=== PATIENT | male | born 1945 | race Caucasian/White ===

== ENCOUNTER → 2023-01-10 12:09 | Outpatient (BNVA) | payer MEDICARE, MEDICAID, SELFPAY | PROVIDERS: PCP Family Medicine; Referring Provider Family Medicine; Visit Provider Nurse Practitioner Gerontology ==

== ENCOUNTER 2023-01-10 14:42 | Outpatient (CLI) | payer MEDICARE, SELFPAY ==
--- OUTSIDE RECORDS SUMMARY | 2023-01-10 14:47 | XMS_ITS | Continuity of Care Document ---
Author Name Unknown Organization [facility] Ambulatory Clinics Address [address] [place] [address] Care Team Providers Care Pharmacy Informaticist Name Role Phone Fercho Cooney MD, Zoraida Primary Care Physician Encounter [facility] NBR [id number] Date(s): 02/03/22 - 02/03/22 [facility] Ambulatory Clinics [address] [place] [place] [address] Encounter Diagnosis Neurogenic bladder(Discharge Diagnosis) - 02/03/22 Prostatitis(Discharge Diagnosis) - 02/03/22 Orchitis(Discharge Diagnosis) - 02/03/22 Discharge Disposition: Home or Self Care Attending Physician: Lashay Amaya APRN Allergies, Adverse Reactions, Alerts Substance Reaction Severity Status enalapril Unknown Active fluconazole Mild Active aspirin Mild Active cholestyramine Mild Active folic acid Mild Active morphine Mild Active Coumadin Mild Active Metoprolol Tartrate Mild Active Lopid Unknown Active Flomax Mild Active Zetia Unknown Active statins 1 Severe Active OxyCODONE Hydrochloride Mild Acti ve GuaiFENesin ER Mild Active 1Other than crestor Assessment and Plan Future Appointments Functional Status 02/03/22 Living Environment Home Environment No qualifying data available Other exposure to Infectious Disease Non e Medications acetaminophen 500 mg oral tablet 1,000 mg = 2 tab, Oral, every 6 hr, PRN as needed for pain, 0 Refill(s) Start Date: 12/09/21 Status: Ordered albuterol 2.5 mg/3 mL (0.083%) inhalation solution 2.5 mg = 3 mL, NEB, every 6 hr, PRN as needed for wheezing, # 90 mL, 0 Refill(s) Start Date: 12/09/21 Status: Ordered amoxicillin 250 mg oral capsule 0 Refill(s) Start Date: 01/11/22 Status: Ordered Banophen 25 mg oral tablet 25 mg = 1 tab, Oral, every 6 hr, PRN as needed for allergy symptoms, # 24 tab, 0 Refill(s) Start Date: 12/09/21 Status: Ordered betamethasone dipropionate 0.05% topical cream 1 apolonia, Topical, BID, # 15 g, 0 Refill(s) Start Date: 12/09/21 Status: Ordered Cartia XT 120 mg/24 hours oral capsule, extended release 120 mg = 1 cap, Oral, Daily, # 90 cap, 0 Refill(s) Start Date: 12/09/21 Status: Ordered cephalexin 500 mg oral capsule 0 Refill(s) Start Date: 12/09/21 Status: Ordered clotrimazole 10 mg oral lozenge 0 Refill(s) Start Date: 12/09/21 Status: Ordered Crestor 40 mg oral tablet 40 mg = 1 tab, Oral, Daily, # 30 tab, 0 Refill(s) Start Date: 12/09/21 Status: Ordered doxycycline hyclate 100 mg oral capsule 0 Refill(s) Start Date: 01/11/22 Status: Ordered Fish Oil 1200 mg oral capsule 0 Refill(s) Start Date: 12/09/21 Status: Ordered Flomax 0.4 mg oral capsule 0.4 mg = 1 cap, Oral, Daily, # 90 cap, 0 Refill(s) Start Date: 12/09/21 Status: Ordered fluconazole 150 mg oral tablet 150 mg = 1 tab, Oral, Once, # 1 tab, 0 Refill(s) Start Date: 12/09/21 Status: Ordered ipratropium 42 mcg/inh (0.06%) nasal spray 0 Refill(s) Start Date: 12/09/21 Status: Ordered magnesium oxide 400 mg (241.3 mg elemental magnesium) oral tablet 0 Refill(s) Start Date: 12/09/21 Status: Ordered NeilMed Sinus Rinse Kit 0 Refill(s) Start Date: 12/09/21 Status: Ordered Nitro-Dur 0.1 mg/hr transdermal film, extended release 1 patches, Topical, Daily, # 90 patches, 0 Refill(s) Start Date: 12/09/21 Status: Ordered nitroglycerin 0.4 mg sublingual tablet 0.4 mg = 1 tab, SL, every 5 min, PRN as needed for chest pain, # 100 tab, 0 Refill(s) Start Date: 12/09/21 Status: Ordered NovoLIN N 100 units/mL subcutaneous suspension 10 units =, Subcutaneous, BID, # 10 mL, 0 Refill(s) Start Date: 12/09/21 Status: Ordered nystatin 100,000 units/mL oral suspension 0 Refill(s) Start Date: 12/09/21 Status: Ordered pantoprazole 40 mg oral delayed release tablet 40 mg = 1 tab, Oral, BID, # 60 tab, 0 Refill(s) Start Date: 12/09/21 Status: Ordered Plavix 75 mg oral tablet 75 mg = 1 tab, Oral, Daily, # 90 tab, 0 Refill(s) Start Date: 12/09/21 Status: Ordered Potassium Chloride (Qjt-Wzoe-Qkg M20) 20 mEq oral tablet, extended release 0 Refill(s) Start Date: 12/09/21 Status: Ordered predniSONE 1 mg oral tablet 3 mg = 3 tab, Oral, Daily, with food or milk, # 90 tab, 0 Refill(s) Start Date: 12/09/21 Status: Ordered Simply Saline 0.9% nasal spray 1 sprays, Nasal, every 30 min, PRN as needed for dry nasal passages, # 45 mL, 0 Refill(s) Start Date: 12/09/21 Status: Ordered Ventolin HFA 90 mcg/inh inhalation aerosol 2 puffs, Inhale, every 4 hr, PRN as needed for wheezing, # 8 g, 0 Refill(s) Start Date: 12/09/21 Status: Ordered Vitamin B12 1,000 mcg =, Oral, Daily, 0 Refill(s) Start Date: 12/09/21 Status: Ordered Xarelto 20 mg oral tablet 20 mg = 1 tab, Oral, every evening, # 30 tab, 0 Refill(s) Start Date: 12/09/21 Status: Ordered Vital Signs Most recent to oldest [Reference Range]: 1 Temperature Temporal Artery [36-38 Deg C ] 36.2 Deg C (02/03/22 11:20 AM) Apical Heart Rate [60-100 bpm] 62 bpm (02/03/22 11:20 AM) Respiratory Rate [12-24 br/min] 12 br/mi n (02/03/22 11:20 AM) Weight 74 kg (02/03/22 11:20 AM) Weight Measured (lbs) 163.142 lb (02/03/22 11:20 AM) [place] Body Weight Calculated 59.598 kg (02/03/22 11:20 AM) Height 163 cm (02/03/22 11:20 AM) Height/Length Measured (inches) 64.17 in (02/03/22 11:20 AM) BSA Measured 1.83 m2 (02/03/22 11:20 AM) Body Mass Index 27.85 kg/m2 (02/03/22 11:20 AM) Social History Social History Type Response Tobacco Former tobacco user Tobacco Use:. Sex Physician Outpatient Note * Lashay Amaya, GLASS INSPECTOR: PERFORM Event Display: Office Clinic Note Physician Authored Date: [id number] DUC BROWN, SEN Dillon :1945 Age:77 years Sex:Male Visit Date:02/03/2022 Primary Care Physician: Zoraida COONEY MD Chief Complaint Follow up for right epididymo-orchitis History of Present Illness Mr. Arita is a pleasant 77 year-old man who presents to the clinic today for??follow-up of right epididymo-orchitis.? He is currently undergoing daily IV infusions of Ceftriaxone antibiotic therapy. He tells me today that his pain is improving. He is having these infusions done daily at [facility]. It was difficult to get this set up for him due to healthcare staffing issues and I was initially told they could not accommodate him. Dr. Etienne pushed back and I am thankful to her for being able to get this therapy in place for him. He lives two miles from [facility]. I could not justify a 77 y.o. man driving to [facility] daily to receive the same therapy. ?? Initially, he was treated with oral antibiotic therapy that consisted of levofloxacin and doxycycline with minimal to??no appreciable improvement of symptoms.?? He denies dysuria.? His urine is not currently cloudy.? He denies perineal pain.? He has a neurogenic bladder, and manages it with [facility] about every 2-3h.? He has a history of bladder calculi. He has a history of ureteral calculi that required ureteroscopy with laser lithotripsy on two occasions. Review of Systems Constitutional:?No??fevers,?No??chills,?No??sweats Eye:?No??recent visual problems ENT:?No??ear pain,?No??nasal congestion,?No??sore throat Respiratory:?No??shortness of breath,?No??cough Cardiovascular:?No??Chest pain,?No??palpitations,?No??syncope Gastrointestinal:?Nonausea,?No??vomiting,?No??diarrhea Genitourinary:?No??hematuria, yes to neurogenic bladder manages with [facility] Ok/Lymph:?No??bruising tendency,?No??swollen lymph glands Endocrine:?No??excessive thirst,??No??excessive hunger Musculoskeletal:??No??back pain,??No??neck pain,??No??joint pain,??No??muscle pain,??No??decreased range of motion Integumentary:?No??rash,?No??pruritus,?No??abrasions Neurologic: Alert & oriented X 4 Psychiatric:?No??anxiety,?No??depression Physical Exam Vitals & Measurements T:??36.2?C ??(Temporal Artery)?? HR:??62??(Apical)?? RR:??12?? SpO2:??95%?? HT:??163??cm?? WT:??74??kg?? BMI:??27.85?? BSA:??1.83?? GENERAL APPEARANCE:??alert and oriented in NAD; appropriate with good affect.??.?? NEURO:??grossly intact.?? HEENT:??NCAT; EOMI.?? NECK:??supple.?? CHEST:??symmetric excursions.?? ABDOMEN:??deferred. MUSCULOSKELETAL:??antalgic gait. EXTREMITIES:??no c/c/e??.?? BACK/SPINE:??deferred. :??deferred. Assessment/Plan 1.??Neurogenic bladder??N31.9 Currently manages with [facility] and low dose tamsulosin. 2.??Prostatitis??N41.9 1. Continue Ceftriaxone 1 gm IV qd per Dr. Etienne orders. 3.??Orchitis??N45.2 see above Mr. Arita is a pleasant 77 y.o. man with prostatitis, orchitis undergoing daily ceftriaxone IV therapy. He is beginning to experience less discomfort and is happy to continue the current plan of care. He will follow up with Dr. Magali Cooney after the antibiotic course is completed and with us in six months. He also has a neurogenic bladder that he manages with [facility] and tamsulosin. Problem List/Past Medical History Ongoing No qualifying data Historical No qualifying data Medications acetaminophen 500 mg oral tablet, 1000 mg= 2 tab, Oral, every 6 hr, PRN albuterol 2.5 mg/3 mL (0.083%) inhalation solution, 2.5 mg= 3 mL, NEB, every 6 hr, PRN amoxicillin 250 mg oral capsule Banophen 25 mg oral tablet, 25 mg= 1 tab, Oral, every 6 hr, PRN betamethasone dipropionate 0.05% topical cream, 1 apolonia, Topical, BID Cartia XT 120 mg/24 hours oral capsule, extended release, 120 mg= 1 cap, Oral, Daily cephalexin 500 mg oral capsule clotrimazole 10 mg oral lozenge Crestor 40 mg oral tablet, 40 mg= 1 tab, Oral, Daily doxycycline hyclate 100 mg oral capsule Fish Oil 1200 mg oral capsule Flomax 0.4 mg oral capsule, 0.4 mg= 1 cap, Oral, Daily fluconazole 150 mg oral tablet, 150 mg= 1 tab, Oral, Once ipratropium 42 mcg/inh (0.06%) nasal spray magnesium oxide 400 mg (241.3 mg elemental magnesium) oral tablet NeilMed Sinus Rinse Kit Nitro-Dur 0.1 mg/hr transdermal film, extended release, 1 patches, Topical, Daily nitroglycerin 0.4 mg sublingual tablet, 0.4 mg= 1 tab, SL, every 5 min, PRN NovoLIN N 100 units/mL subcutaneous suspension, 10 units, Subcutaneous, BID nystatin 100,000 units/mL oral suspension pantoprazole 40 mg oral delayed release tablet, 40 mg= 1 tab, Oral, BID Plavix 75 mg oral tablet, 75 mg= 1 tab, Oral, Daily Potassium Chloride (Qin-Jhsi-Php M20) 20 mEq oral tablet, extended release predniSONE 1 mg oral tablet, 3 mg= 3 tab, Oral, Daily Simply Saline 0.9% nasal spray, 1 sprays, Nasal, every 30 min, PRN Ventolin HFA 90 mcg/inh inhalation aerosol, 2 puffs, Inhale, every 4 hr, PRN Vitamin B12, 1000 mcg, Oral, Daily Xarelto 20 mg oral tablet, 20 mg= 1 tab, Oral, every evening Allergies statins Coumadin Flomax GuaiFENesin ER Metoprolol Tartrate OxyCODONE Hydrochloride aspirin cholestyramine fluconazole folic acid morphine Lopid Zetia enalapril Social History Electronic Cigarette/Vaping Electronic Cigarette Use: Never. Tobacco Former tobacco user Tobacco Use:. Electronically Signed on 02/03/22 01:02 PM Lashay Amaya APRN Patient Care team information Personnel Name: Zoraida COONEY MD Address: Address: [address]
--- OUTSIDE RECORDS SUMMARY | 2023-01-10 14:47 | XMS_ITS | Continuity of Care Document ---
Author Name Unknown Organization [facility] Address [address] [place] [address] Care Team Providers Care Addiction Medicine Physician Name Role Phone Fercho Barajas MD, Zoraida Primary Care Physician Encounter [facility] NBR [id number] Date(s): 03/11/22 - 03/11/[address] [address] [place] Encounter Diagnosis Prostatitis(Discharge Diagnosis) - 03/11/22 Discharge Disposition: Home or Self Care Attending Physician: Lashay Amaya APRN Admitting Physician: Lashay Amaya APRN Allergies, Adverse Reactions, [...] than crestor Assessment and Plan Future Appointments Medications acetaminophen 500 mg oral tablet 1,000 [...] Start Date: 12/09/21 Status: Ordered Potassium Chloride (Jwe-Xoco-Qul M20) 20 mEq oral tablet, extended release [...] 0 Refill(s) Start Date: 12/09/21 Status: Ordered Results Laboratory List Name Date Urinalysis Microscopic 03/11/22 Urinalysis with Micro if Indicated and C ulture if Indicated 03/11/22 Most recent to oldest [Reference Range]: 1 UA Color [Yellow] Yellow (03/11/22 4:10 PM) UA WBC [0-3] 0-3 (03/11/22 4:10 PM) UA Urobilinogen [0.2] 0.2 (03/11/22 4:10 PM) UA Bili [Negative] Negative (03/11/22 4:10 PM) UA Ketones [Negative] Negative (03/11/22 4:10 PM) UA RBC [0-3] 6-10 *ABN* (03/11/22 4:10 PM) UA Leuk Est [Negative] Negative (03/11/22 4:10 PM) UA Nitrite [Negative] Negative (03/11/22 4:10 PM) UA Glucose [Negative] Negative (03/11/22 4:10 PM) UA Bacteria [None Seen] 1+ *ABN* (03/11/22 4:10 PM) UA Protein [Negative] Negative (03/11/22 4:10 PM) UA Blood [Negative] Moderate *ABN* (03/11/22 4:10 PM) UA Spec Grav 1.020 *NA* (03/11/22 4:10 PM) UA Squam Epithelial [0-3] 0-3 (03/11/22 4:10 PM) UA pH 8.00 *NA* (03/11/22 4:10 PM) UA Appear [Clear] Clear (03/11/22 4:10 PM) UA Culture Ind?. [No] Yes (03/11/22 4:10 PM) Urine Srce Clean Catch (03/11/22 4:10 PM) Orders for Microbiology Reports Name Date Urine Culture 03/11/22 Microbiology Reports TEST:Urine Culture STATUS:Order in Progress BODY SITE: SOURCE:Urine, Clean Catch COLLECTED DATE/TIME:03/11/22 4:10 PM PRELIMINARY REPORT No growth of uropathogens Social History Social History Type Response Tobacco Former tobacco user Tobacco Use:. Sex Patient Care team information Personnel Name: Zoraida BARAJAS MD Address: Address: [address]
--- OUTSIDE RECORDS SUMMARY | 2023-01-10 14:47 | XMS_ITS | Continuity of Care Document ---
Author Name Unknown Organization [facility] Ambulatory Clinics Address [address] [place] [address] Care Team Providers Care Bed Control Specialist Name Role Phone Fercho Barajas MD, Zoraida Primary Care Physician Encounter [facility] NBR [id number] Date(s): 03/11/22 - 03/11/22 [facility] Ambulatory Clinics [address] [place] [address] [place] Encounter Diagnosis Prostatitis(Discharge Diagnosis) - 03/11/22 [...] Assessment and Plan Future Appointments Functional Status 03/11/22 Living Environment Home Environment No qualifying data [...] Start Date: 12/09/21 Status: Ordered Potassium Chloride (Gvf-Oxtm-Afw M20) 20 mEq oral tablet, extended release [...] Status: Ordered Results Laboratory List Name Date .Urinalysis POCT 03/11/22 Most recent to oldest [Reference Range]: 1 Method of Collect POC Clean Catch *NA* (03/11/22 9:37 AM) Specific [place], Ur POC 1.020 *NA* (03/11/22 9:37 AM) Specimen Color POC [Yellow] Yellow (03/11/22 9:37 AM) Glucose, Urine POC Negative mg/dL *NA* (03/11/22 9:37 AM) Bilirubin, Urine POC [Negative] Negative (03/11/22 9:37 AM) Ketones, Urine POC [Negative mg/dL] Nega tive mg/dL (03/11/22 9:37 AM) Blood, Urine POC [Negative] Moderate *ABN* (03/11/22 9:37 AM) pH, Urine POC 8.5 *NA* (03/11/22 9:37 AM) Protein, Urine POC [Negative mg/dL] Nega tive mg/dL (03/11/22 9:37 AM) Urobilinogen, Urine POC [0.2] 0.2 (03/11/22 9:37 AM) Nitrite, Urine POC [Negative] Negative (03/11/22 9:37 AM) Leuk Esterase, Urine POC [Negative] Nega tive (03/11/22 9:37 AM) Clarity, Urine POC [Clear] Clear (03/11/22 9:37 AM) Vital Signs Most recent to oldest [Reference Range]: 1 Temperature Temporal Artery [36-38 Deg C ] 36.1 Deg C (03/11/22 9:26 AM) Apical Heart Rate [60-100 bpm] 81 bpm (03/11/22 9:26 AM) Respiratory Rate [12-24 br/min] 14 br/mi n (03/11/22 9:26 AM) Blood Pressure [90-140/60-90 mmHg] 140/7 2mmHg (03/11/22 9:26 AM) Weight 71.75 kg (03/11/22 9:26 AM) Weight Measured (lbs) 158.181 lb (03/11/22 9:26 AM) [place] Body Weight Calculated 60.504 kg (03/11/22 9:26 AM) Height 164 cm (03/11/22 9:26 AM) Height/Length Measured (inches) 64.57 in ch (03/11/22 9:26 AM) BSA Measured 1.81 m2 (03/11/22 9:26 AM) Body Mass Index 26.68 kg/m2 (03/11/22 9:26 AM) Social History Social History Type Response Tobacco Former tobacco user Tobacco Use:. Sex Patient Care team information Personnel Name: Zoraida BARAJAS MD Address: Address: [address]
--- OUTSIDE RECORDS SUMMARY | 2023-01-10 14:47 | XMS_ITS | Continuity of Care Document ---
Author Name Unknown Organization [facility] Ambulatory Clinics Address [address] [place] [address] Care Team Providers Care Front Desk Representative Name Role Phone Fercho Cooney MD, Zoraida Primary Care Physician Encounter [facility] NBR [id number] Date(s): 04/12/22 - 04/12/22 [facility] Ambulatory [facility]ics [address] [place] [address] [place] Encounter Diagnosis Benign localized prostatic hyperplasia with lower urinary tract symptoms (LUTS) (Discharge Diagnosis) - 04/12/22 Neurogenic bladder(Discharge Diagnosis) - 04/12/22 Discharge Disposition: Home or Self Care Attending Physician: Glenna Mendoza MD Allergies, Adverse Reactions, Alerts Substance Reaction Severity [...] Assessment and Plan Future Appointments Functional Status 04/12/22 Living Environment Home Environment No qualifying data [...] Start Date: 12/09/21 Status: Ordered Potassium Chloride (Osp-Pnmt-Xos M20) 20 mEq oral tablet, extended release [...] 0 Refill(s) Start Date: 12/09/21 Status: Ordered Problem List Condition Confirmation Course Effective Dates Status Health St atus Informant Benign localized prostatic hyperplasia with lower urinary tract symptoms (LUTS) Confirmed Active Neurogenic bladder Confirmed Active Results Laboratory List Name Date .Urinalysis POCT 04/12/22 Most recent to oldest [Reference Range]: 1 Method of Collect POC Clean Catch *NA* (04/12/22 9:51 AM) Specific [place], Ur POC 1.025 *NA* (04/12/22 9:51 AM) Specimen Color POC [Yellow] Yellow (2/20/23 9:51 AM) Glucose, Urine POC 100 mg/dL *NA* (04/12/22 9:51 AM) Bilirubin, Urine POC [Negative] Negative (04/12/22 9:51 AM) Ketones, Urine POC [Negative mg/dL] Nega tive mg/dL (04/12/22 9:51 AM) Blood, Urine POC [Negative] Small *ABN* (04/12/22 9:51 AM) pH, Urine POC 7.0 *NA* (04/12/22 9:51 AM) Protein, Urine POC [Negative mg/dL] Nega tive mg/dL (04/12/22 9:51 AM) Urobilinogen, Urine POC [0.2] 0.2 (04/12/22 9:51 AM) Nitrite, Urine POC [Negative] Negative (04/12/22 9:51 AM) Leuk Esterase, Urine POC [Negative] Trac e *ABN* (04/12/22 9:51 AM) Clarity, Urine POC [Clear] Clear (04/12/22 9:51 AM) Vital Signs Most recent to oldest [Reference Range]: 1 Temperature Temporal Artery [36-38 Deg C ] 36.2 Deg C (04/12/22 10:07 AM) Apical Heart Rate [60-100 bpm] 102 bpm *HI* (04/12/22 10:07 AM) Respiratory Rate [12-24 br/min] 12 br/mi n (04/12/22 10:07 AM) Blood Pressure [90-140/60-90 mmHg] 138/6 2mmHg (04/12/22 10:07 AM) Weight 71.75 kg (04/12/22 10:07 AM) Weight Measured (lbs) 158.181 lb (04/12/22 10:07 AM) [place] Body Weight Calculated 60.504 kg (04/12/22 10:07 AM) Height 164 cm (04/12/22 10:07 AM) Height/Length Measured (inches) 64.57 in (04/12/22 10:07 AM) BSA Measured 1.81 m2 (04/12/22 10:07 AM) Body Mass Index 26.68 kg/m2 (04/12/22 10:07 AM) Social History Social History Type Response Tobacco Former tobacco user Tobacco Use:. Sex Physician Outpatient Note * Glenna Mendoza MD: PERFORM Event Display: Office Clinic Note Physician Authored Date: [id number] SEN ARITA SR :1945 Age:77 years Sex:Male Visit Date:04/12/2022 Primary Care Physician: Zoraida COONEY MD Chief Complaint Recurrent UTI/prostatitis History of Present Illness Mr. Arita is a pleasant 77 year-old?? man with DMII and recent recurrent??prostatitis/UTI in the context??of a neurogenic bladder he manages with [facility]IC. He presents today for cystoscopy as part of his work-up.?? He notes that he has intermittent difficulty passing a catheter, and wonders if this is related to the prostate.?He has associated bilateral lower back pain, and some dysuria.? He has a history of UTI, and was recently treated at [facility] for UTI. He has DMII and an associated neurogenic bladder diagnosed in 2003 by a urodynamic study done at [facility]. He was instructed to manage his bladder with CIC at that time, which he did for several months.?? He later quit for several years before going backto it.? He has??recently had issues with recurrent??prostatitis/UTI, and discomfort with catheterization.?? He is adamant that he would like a TURP, which he feels would resolve the issue.?? I reminded him that the urodynamic study he had at [facility] back in 2003 showed a??neurogenic bladder,in which case a TURP would??very likely not improve his urination, and therefore would not??decrease his risk of UTI.? I also let him know that I was not at all certain that he would be a good??surgical candidate. ?? Physical Exam Vitals & Measurements T:??36.2?C ??(Temporal Artery)?? HR:??102??(Apical)?? RR:??12?? BP:??138/62?? SpO2:??95%?? HT:??164??cm?? WT:??71.75??kg?? BMI:??26.68?? BSA:??1.81?? Procedure CYSTOSCOPY: ? After the patient give his informed consent??to undergo cystoscopy, he was placed supine on the table.? The genitalia were prepped and draped in standard sterile fashion.? A time-out was completed.?? Lidocaine jelly was instilled per urethra as a local anesthetic. Flexible cystoscopy was performed with a 17 Fr flexible cystoscope.?? 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 The bladder demonstrated no masses, and no foreign bodies.?? Teie-gg-crhohldk ??trabeculations and several??cellules were noted. The ureteral orifices were orthotopic bilaterally, and clear efflux was noted bilaterally as well. The patient tolerated the procedure well and remained stable throughout. ?? Assessment/Plan 1.??Neurogenic bladder??N31.9 ?? Benign localized prostatic hyperplasia with lower urinary tract symptoms (LUTS)??N40.1 Ordered: levoFLOXacin, 500 mg, Oral, Tab, Once, Antibiotic Indication Prophylaxis- other, non-surgical, First Dose: 04/12/22 11:00:00 EST, Stop Date: 04/12/22 11:00:00 EST, Physician Stop, Routine Pyridium, 100 mg, Oral, Tab, Once, First Dose: 04/12/22 11:00:00 EST, Stop Date: 04/12/22 11:00:00 EST, Physician Stop, Routine Urine Dipstick Clinic POC (RE), 04/12/22 9:50:00 EST, Benign localized prostatic hyperplasia with lower urinary tract symptoms (LUTS), 04/12/22 9:50:00 EST ?? ASSESSMENT:?? Mr. Arita is a pleasant 77 year-old?? man with DMII and recent recurrent??prostatitis/UTI in the context??of a neurogenic bladder he manages with CIC.?? His cystoscopy today showed mild meatal stenosis and a faint narrowing of the urethra at the bulb.?? PLAN: 1. He will continue CIC for now. 2. Suppression antibiotics will be considered, since frequent UTI have recently been problematic for him. 3. I am very hesitant to consider him for TURP, since his prior urodynamic study from 2003 showed aneurogenic bladder. ?? Problem List/Past Medical History Ongoing Benign localized prostatic hyperplasia with lower urinary tract symptoms (LUTS) Neurogenic bladder Historical No qualifying data Medications acetaminophen 500 [...] Once ipratropium 42 mcg/inh (0.06%) nasal spray levoFLOXacin, 500 mg, Oral, Once magnesium oxide 400 mg (241.3 mg elemental [...] mg= 1 tab, Oral, Daily Potassium Chloride (Hfk-Vwmd-Snq M20) 20 mEq oral tablet, extended release predniSONE 1 mg oral tablet, 3 mg= 3 tab, Oral, Daily Pyridium, 100 mg, Oral, Once Simply Saline 0.9% nasal spray, 1 sprays, [...] Never. Tobacco Former tobacco user Tobacco Use:. Lab Results Test Name Test Result Date/Time Method of Collect POC Clean Catch 04/12/2022 09:51 EST Specimen Color POC Yellow 04/12/2022 09:51 EST Clarity, Urine POC Clear 04/12/2022 09:51 EST Glucose, Urine POC 100 04/12/2022 09:51 EST Bilirubin, Urine POC Negative 04/12/2022 09:51 EST Ketones, Urine POC Negative 04/12/2022 09:51 EST Specific [place], Ur POC 1.025 04/12/2022 09:51 EST pH, Urine POC 7.0 04/12/2022 09:51 EST Protein, Urine POC Negative 04/12/2022 09:51 EST Urobilinogen, Urine POC 0.2 04/12/2022 09:51 EST Nitrite, Urine POC Negative 04/12/2022 09:51 EST Blood, Urine POC Small 04/12/2022 09:51 EST Leuk Esterase, Urine POC Trace 04/12/2022 09:51 EST Electronically Signed on 04/12/22 04:53 PM Glenna Mendoza MD Patient Care team information Care Team Personnel Name: Zoraida COONEY MD Position: Physician Member Role: Primary Care Physician Address: Address: [address] [address] Name: Lashay Amaya APRN Position: Physician Member Role: Nurse Practitioner Address: Address: [address] [place] [id number] [place] Care Team Related Persons Name: JANA ARITA
--- OUTSIDE RECORDS SUMMARY | 2023-01-10 14:47 | XMS_ITS | Continuity of Care Document ---
Author Name Unknown Organization [facility] Ambulatory Clinics Address [address] [place] [address] Care Team Providers Care White Sourer Name Role Phone Fercho Barajas MD, Ozraida Primary Care Physician Encounter [facility] NBR [id number] Date(s): 01/11/22 - 01/11/22 [facility] Ambulatory Clinics [address] [place], [place] [address] Encounter Diagnosis BPH (benign prostatic hyperplasia)(Discharge Diagnosis) - 01/11/22 Discharge Disposition: Home or Self Care Attending [...] Assessment and Plan Future Appointments Functional Status 01/11/22 Living Environment Home Environment No qualifying data [...] Start Date: 12/09/21 Status: Ordered Potassium Chloride (Djd-Ooot-Qoa M20) 20 mEq oral tablet, extended release [...] Temperature Temporal Artery [36-38 Deg C ] 36.0 Deg C (01/11/22 3:02 PM) Apical Heart Rate [60-100 bpm] 113 bpm *HI* (01/11/22 3:02 PM) Respiratory Rate [12-24 br/min] 12 br/mi n (01/11/22 3:02 PM) Blood Pressure [90-140/60-90 mmHg] 136/7 2mmHg (01/11/22 3:02 PM) Weight 74 kg (01/11/22 3:02 PM) Weight Measured (lbs) 163.142 lb (01/11/22 3:02 PM) [place] Body Weight Calculated 59.598 kg (01/11/22 3:02 PM) Height 163 cm (01/11/22 3:02 PM) Height/Length Measured (inches) 64.17 in ch (01/11/22 3:02 PM) BSA Measured 1.83 m2 (01/11/22 3:02 PM) Body Mass Index 27.85 kg/m2 (01/11/22 3:02 PM) Social History Social History Type Response Tobacco Former tobacco user Tobacco Use:. Sex Patient Care team information Personnel Name: Zoraida BARAJAS MD Address: Address: [address] [address]
--- OUTSIDE RECORDS SUMMARY | 2023-01-10 14:47 | XMS_ITS | Continuity of Care Document ---
Author Name Unknown Organization [facility] Ambulatory Clinics Address [address] [place] [address] Care Team Providers Care Molecular Biologist Name Role Phone Fercho Cooney MD, Zoraida Primary Care Physician Encounter [facility] NBR [id number] Date(s): 06/09/22 - 06/09/22 [facility] Ambulatory Clinics [address] [place], [place] [address] Encounter Diagnosis Dysphagia(Discharge Diagnosis) - 06/08/22 Dysphonia(Discharge Diagnosis) - 06/08/22 Environmental allergies(Discharge Diagnosis) - 06/09/22 Xerostomia(Discharge Diagnosis) - 06/09/22 Nasal polyps(Discharge Diagnosis) - 06/09/22 Oral candidiasis(Discharge Diagnosis) - 06/09/22 Discharge Disposition: Home or Self Care Attending Physician: AMITA Wagner Allergies, Adverse Reactions, Alerts Substance Reaction Severity [...] crestor Assessment and Plan Future Appointments Medications !-Flonase 50 mcg/inh nasal spray 1 sprays, Nasal, BID, # 16 g, 2 Refill(s), Pharmacy: [facility] #[id number] Start Date: 06/09/22 Stop Date: 09/07/22 Status: Ordered acetaminophen 500 mg oral tablet 1,000 mg [...] Status: Ordered clotrimazole 10 mg oral lozenge 1 lozenges, Oral, TID, # 42 lozenges, 0 Refill(s), Pharmacy: [facility] #[id number] Start Date: 06/09/22 Stop Date: 06/23/22 Status: Ordered clotrimazole 10 mg oral lozenge [...] Start Date: 12/09/21 Status: Ordered Potassium Chloride (Uot-Ciud-Spu M20) 20 mEq oral tablet, extended release [...] 0 Refill(s) Start Date: 12/09/21 Status: Ordered ZyrTEC 10 mg oral tablet 10 mg = 1 tab, Oral, Daily, # 30 tab, 2 Refill(s), Pharmacy: [facility] #[id number] Start Date: 06/09/22 Stop Date: 09/07/22 Status: Ordered Problem List Condition Confirmation Course Effective Dates Status Health St at[facility] Informant Benign localized prostatic hyperplasia with lower urinary tract symptoms (LUTS) Confirmed Active Dysphagia Confirmed Active Dysphonia Confirmed Active Neurogenic bladder Confirmed Active Social History Social History Type Response Tobacco Former tobacco user Tobacco Use:. Sex Physician Outpatient Note * AMITA Wagner: PERFORM AMITA Wagner: PERFORM, MODIFY AMITA Wagner: MODIFY, MODIFY AMITA Wagner: MODIFY Event Display: Office Clinic Note Physician Authored Date: [id number] DUC SR SEN Dillon :1945 Age:77 years Sex:Male Visit Date:06/09/2022 Primary Care Physician: Zoraida Beck MD History of Present Illness Established patient in the office today for 6 month recheck of dysphagia. When patient was last in the office, patient was recommended to drink water when eating to help. He was scoped at last visit.??We did discuss option of??further evaluation with??GI medicine and consideration of endoscopy. ??Given??his current??history of possible unstable angina??stressed the importance of priority of making sure he is following up closely with primary care for this.?? Encouraged him to??drink fluids witheating and we discussed??techniques to??minimize??dysphagia. Patient notes that he has been spitting up some phlegm. He notes that that he has been drinking water with his meals and he has helped. Review of Systems Negative for: no new cardiac, respiratory, GI, , hematologic, neurologic, psychological, allergic, traumatic or endocrine problems except as listed above Physical Exam GENERAL APPEARANCE:??The patient is awake, alert, and oriented and in no acute distress, Appears nutritionally sound, Healthy in appearance, Voice is strong, with no stridor or stertor, Handling secretions without difficulty.?PSYCH:??affect normal, good eye contact, oriented to person, oriented to place, oriented to time.?NEURO:??CN's II-XII grossly intact, Gait is normal,?HEENT:??The patient is normocephalic with a normal facies with cranial nerves 2 through 12 bilaterally equal and intact. Pupils are equal and reactive to light with extraocular movements bilaterally equal and intact. There is no proptosis or enophthalmos,??EARS:, Ear exam reveals normal appearing pinna bilaterally. Mastoids are normal to palpation and nontender bilaterally. the ext ernal canal are patent, without otorrhea, with bilateral TM's mobile with no evidence of middle earfluid, middle ear masses, or retraction pockets.??NOSE:, The inferior turbinates are within normal limits, The middle meati are unremarkable with no polyps, masses or purulent discharge,??ORAL CAVITY:, no trismus, tongue and floor of mouth are normal to inspection and palpation. Mucosa is??dry withclear PND, mucosa is??currently has??oral candidiasis largely confined to lateral tongue bilaterally. the palate is intact and elevates symmetrically in midline,??OROPHARYNX:, Uvula midline, soft palate symmetric.?NECK:??There is no palpable lymphadenopathy.?HEART:??regular rate and rhythm.?LUNGS:??clear to auscultation bilaterally, no wheezes/rhonchi/rales.?SKIN:??normal across the head and neck.?MUSCULOSKELETAL:??normal gait and station.?? Assessment/Plan 1.??Dysphagia??R13.10 Dysphonia and dysphagia with??findings of nasal polyposis, postnasal drip, xerostomia??and history of environmental allergies. ??He is not having any significant??aspiration or penetration with barium swallow.?? He will benefit significantly from medication adjustment??from an allergy and nasal polyp standpoint. ??I do not see any evidence of sinus infection??with exam today.?? From a cardiac standpoint he is doing much better without??having symptomatic??angina and not requiring??nitroglycerinas he was/mentioned at last visit.?? We will continue with??swallowing??exercises, fluids and follow-up as needed. ??I do hope that??with medication changes below??he will have less dryness improvement in swallow as well. Ordered: clotrimazole 10 mg oral lozenge, 1 lozenges, Oral, TID, # 42 lozenges, 0 Refill(s), Pharmacy: [facility] #[id number] !-Flonase 50 mcg/inh nasal spray, 1 sprays, Nasal, BID, # 16 g, 2 Refill(s), Pharmacy: [facility] #[id number] ?? 2.??Dysphonia??R49.0 Ordered: clotrimazole 10 mg oral lozenge, 1 lozenges, Oral, TID, # 42 lozenges, 0 Refill(s), Pharmacy: [facility] #[id number] !-Flonase 50 mcg/inh nasal spray, 1 sprays, Nasal, BID, # 16 g, 2 Refill(s), Pharmacy: [facility] #[id number] ?? 3.??Environmental allergies??Z91.09 Recommend discontinuation of??ipratropium spray which is likely adding to his dryness??and mucus. ??Start Flonase. ??I will look into if the prednisone is being only used for nasal polyps??and consider other medications/things that would be more optimal for long-term treatment.?? I expect he is also on the prednisone for another reason.?? Recommend discontinuing Benadryl which she has been taking3 times daily and is??certainly not ideal.?? Start once daily cetirizine and if needed can move this to twice daily.?? He did have prior allergy testing which was positive from??trees, weeds, grasses, dust mites. ??He did??undergo allergy immunotherapy. ?? 4.??Xerostomia??K11.7 ?? 5.??Nasal polyps??J33.9 ?? 6.??Oral candidiasis??B37.0 Oral candidiasis??with history of candidiasis in the past.?? Denies any anaphylactic reactions to fluconazole??which is on his allergy list.?? I do think that??this will ideally be treated with??clotrimazole troches which I have prescribed.?? Recommend follow-up for recheck.?? Weeks and sooner as needed.?? We will also recheck medication changes as above at that time. ?? Orders: ZyrTEC 10 mg oral tablet, 10 mg = 1 tab, Oral, Daily, # 30 tab, 2 Refill(s), Pharmacy: [facility] #[id number] Follow Up Instructions 6 months, rescope Problem List/Past Medical History Ongoing Benign localized prostatic hyperplasia with lower urinary tract symptoms (LUTS) Dysphagia Dysphonia Neurogenic bladder Historical No qualifying data Medications [...] mg= 1 tab, Oral, Daily Potassium Chloride (Koc-Jjkv-Qie M20) 20 mEq oral tablet, extended release [...] tobacco user Tobacco Use:. Electronically Signed on 06/09/22 11:34 AM AMITA Wagner Patient Care team information Care Team Personnel Name: Lashay Amaya APRN Position: Physician Member Role: Nurse Practitioner Address: Address: [address] [place] [phone] Name: Zoraida Beck MD Position: Physician Member Role: Primary Care Physician Address: Address: [address] [address] Care Team Related Persons Name: JANA XAVIER
--- OUTSIDE RECORDS SUMMARY | 2023-01-10 14:47 | XMS_ITS | Continuity of Care Document ---
Author Name Unknown Organization [facility] Ambulatory Clinics Address [address] [place] [address] Care Team Providers Care Deputy Of Counter Intelligence Name Role Phone Fercho Cooney MD, Zoraida Primary Care Physician Encounter [facility] NBR [id number] Date(s): 07/07/22 - 07/07/22 [facility] [address] [place] [address] [place] Encounter Diagnosis Dysphagia(Discharge Diagnosis) - 07/06/22 Dysphonia(Discharge Diagnosis) - 07/06/22 Nasal polyps(Discharge Diagnosis) - 07/07/22 Discharge Disposition: Home or Self Care Attending [...] GuaiFENesin ER Mild Active 1Other than crestor Medications !-Flonase 50 mcg/inh nasal spray 1 sprays, Nasal, BID, # 16 g, 2 Refill(s), Pharmacy: [facility] #[id number] Start Date: 06/09/22 Stop Date: 09/07/22 Status: [...] 0 Refill(s) Start Date: 01/11/22 Status: Ordered atenolol 25 mg oral tablet 25 mg = 1 tab, Oral, Daily, # 30 tab, 0 Refill(s) Start Date: 07/07/22 Status: Ordered Banophen 25 mg oral tablet [...] TID, # 42 lozenges, 0 Refill(s), Pharmacy: [facility] #[id number] Start Date: 06/09/22 Stop Date: 06/23/22 Status: Ordered clotrimazole 10 mg oral lozenge 1 lozenges, Oral, TID, # 42 lozenges, 0 Refill(s), Pharmacy: [facility] #[id number] Start Date: 07/07/22 Stop Date: 07/21/22 Status: Ordered clotrimazole 10 mg oral lozenge [...] Start Date: 12/09/21 Status: Ordered Potassium Chloride (Zln-Nloe-Qem M20) 20 mEq oral tablet, extended release [...] Daily, # 30 tab, 2 Refill(s), Pharmacy: [facility] #[id number] Start Date: 06/09/22 Stop Date: 09/07/22 Status: Ordered Problem List Condition Confirmation Course Effective Dates Status H ealth Status Informant Benign localized prostatic hyperplasia with lower urinary tract symptoms (LUTS) Confirmed Active Oral candidiasis Confirmed Active Dysphagia Confirmed Active Dysphonia Confirmed Active History of environmental allergies Confirmed Active Neurogenic bladder Confirmed Active Xerostomia Confirmed Active Vital Signs Most recent to oldest [Reference Range]: 1 Blood Pressure [90-140/60-90 mmHg] 110/7 0mmHg (07/07/22 10:32 AM) Social History Social History Type Response Tobacco Former tobacco user Tobacco Use:. Sex Physician Outpatient Note * AMITA Wagner: PERFORM, MODIFY, MODIFY, MODIFY AMITA Wagner: MODIFY Rosa Isela Roth: MODIFY Event Display: Office Clinic Note Physician Authored Date: [id number] DUC SR SEN Dillon :1945 Age:77 years Sex:Male Visit Date:07/07/2022 Primary Care Physician: Zoraida Beck MD History of Present Illness Established patient in the office today for 4 week recheck oral candidiasis. Patient was prescribedat last office visit Clotrimazole troches for oral candidiasis, as well as Zyrtec and Flonase to help with improving dryness. Patient was to continue with swallowing exercises and fluids with meals to help with swallowing. It was recommended that he??discontinue??the??ipratropium spray which??was likely adding to his dryness??and mucus.?? Also recommended discontinuing Benadryl which??he had beentaking 3 times daily. He did have prior allergy testing which was positive from??trees, weeds, grasses, dust mites. ??He did??undergo allergy immunotherapy. He did undergo a barium swallow which did n ot show any significant aspiration or laryngeal penetration.?? He does have a history of??nasal polyposis.?? No evidence of acute sinusitis on exam or by history last visit.?? Recommended also starting Flonase. ??Patient states he has been feeling much better since his last visit, he stated he had stopped the medications he was suppose to and started the new recommended ones and has seen improvement. Patient states he is on an antibiotic due to s prostate infection. He notes??that with stopping the Benadryl and??ipratropium his symptoms??including problems swallowing and??throat irritation almost fully??resolved.?? This was also improved with??the clotrimazole drops.?? After stopping clotrimazole drops he did??have to restart??oral antibiotic doxycycline due to??prostate infection. ??With this he did feel that the??thrush was starting to return??and has somemild irritation now though significantly better than??last visit. Review of Systems Negative for: no new cardiac, respiratory, GI, , hematologic, neurologic, psychological, allergic, traumatic or endocrine problems except as listed above Physical Exam GENERAL APPEARANCE:??The patient is awake, alert, and oriented and in no acute distress, Appears nutritionally sound, Voice is strong, with no stridor or stertor, Handling secretions without difficulty.?PSYCH:??affect normal, good eye contact, oriented to person, oriented to place, oriented to time.?NEURO:??CN's II-XII grossly intact, Gait is normal, The patient has endpoint nystagmus only.?HEENT:??The patient is normocephalic with a normal facies [...] are normal to inspection and palpation. Mucosa is moist With very minimal candidiasis of the soft palate. the palate is intact and elevates symmetrically in midline,??OROPHARYNX:, Uvula midline, soft palate symmetric.?NECK:??There is no palpable lymphadenopathy.?SKIN:??normal across the head and neck.?MUSCULOSKELETAL:??normal gait and station.?? Assessment/Plan 1.??Dysphagia??R13.10 Multifocal dysphagia??likely largely secondary to candidiasis and xerostomia. ??Significant improvement??with discontinuing??ipratropium and Benadryl. ??He has some very minimal changes consistent with early thrush and recommend??treatment with another 7 days of clotrimazole.?? I did prescribe an additional week in case he notices is coming back??with further antibiotic use.?? At this time counseled him to return if symptoms??worsen or??he is having any??problems with??nasal polyps. ??Currentlythings are normal on??obstructive and no evidence of acute sinusitis??or chronic sinusitis. ??Recommend continued??daily use of Flonase. Ordered: clotrimazole 10 mg oral lozenge, 1 lozenges, Oral, TID, # 42 lozenges, 0 Refill(s), [id number] ?? 2.??Dysphonia??R49.0 Ordered: clotrimazole 10 mg oral lozenge, 1 lozenges, Oral, TID, # 42 lozenges, 0 Refill(s), Pharmacy: [facility] #[id number] ?? 3.??Nasal polyps??J33.9 Ordered: clotrimazole 10 mg oral lozenge, 1 lozenges, Oral, TID, # 42 lozenges, 0 Refill(s), Pharmacy: [facility] #[id number] ?? Problem List/Past Medical History Ongoing Benign localized prostatic hyperplasia with lower urinary tract symptoms (LUTS) Dysphagia Dysphonia History of environmental allergies Neurogenic bladder Oral candidiasis Xerostomia Historical No qualifying data Medications !-Flonase 50 mcg/inh nasal spray, 1 sprays, Nasal, BID, 2 refills acetaminophen 500 mg oral tablet, 1000 mg= [...] mg oral capsule clotrimazole 10 mg oral lozenge, 1 lozenges, Oral, TID clotrimazole 10 mg oral lozenge Crestor 40 [...] mg= 1 tab, Oral, Daily Potassium Chloride (Yix-Munj-Azc M20) 20 mEq oral tablet, extended release predniSONE 1 mg oral tablet, 3 mg= 3 tab, Oral, Daily Simply Saline 0.9% nasal spray, 1 sprays, Nasal, every 30 min, PRN Ventolin HFA 90 mcg/inh inhalation aerosol, 2 puffs, Inhale, every 4 hr, PRN Vitamin B12, 1000 mcg, Oral, Daily Xarelto 20 mg oral tablet, 20 mg= 1 tab, Oral, every evening ZyrTEC 10 mg oral tablet, 10 mg= 1 tab, Oral, Daily, 2 refills Allergies statins Coumadin Flomax GuaiFENesin ER Metoprolol Tartrate OxyCODONE Hydrochloride aspirin cholestyramine fluconazole folic acid morphine Lopid Zetia enalapril Social History Electronic Cigarette/Vaping Electronic Cigarette Use: Never. Tobacco Former tobacco user Tobacco Use:. Electronically Signed on 07/07/22 11:02 AM AMITA Wagner Patient Care team information Care Team Personnel Name: Lashay Amaya APRN Position: Physician Member Role: Nurse Practitioner Address: Address: [address] [place] [id number] Name: Zoraida Beck MD Position: Physician Member Role: Primary Care Physician Address: Address: [address] [address] Care Team Related Persons Name: JANA XAVIER
--- OUTSIDE RECORDS SUMMARY | 2023-01-10 14:47 | XMS_ITS | Continuity of Care Document ---
Author Name Unknown Organization [facility] Ambulatory Clinics Address [address] [place] [address] Care Team Providers Care Oil Distributor Tender Name Role Phone Zoraida Forrest MD Primary Care Physician Encounter [facility] NBR [id number] Date(s): 12/09/21 - 12/09/21 [facility] Ambulatory Clinics [address] [place] [address] [place] Encounter Diagnosis Dysphagia(Discharge Diagnosis) - 12/08/21 Dysphonia(Discharge Diagnosis) - 12/08/21 Nasal polyps(Discharge Diagnosis) - 12/08/21 Discharge Disposition: Home or Self Care Attending Physician: AMITA Wagner Referring Physician: Zoraida Forrest MD Allergies, Adverse Reactions, Alerts Substance Reaction [...] Assessment and Plan Future Appointments Functional Status 12/09/21 Other exposure to Infectious Disease Non e [...] 0 Refill(s) Start Date: 12/09/21 Status: Ordered Banophen 25 mg oral tablet [...] 0 Refill(s) Start Date: 12/09/21 Status: Ordered Fish Oil 1200 mg oral [...] Start Date: 12/09/21 Status: Ordered Potassium Chloride (Xpu-Mwex-Iuy M20) 20 mEq oral tablet, extended release [...] 0 Refill(s) Start Date: 12/09/21 Status: Ordered Social History Social History Type Response Tobacco Former tobacco user Tobacco Use:. Sex Patient Care team information Personnel Name: Zoraida Forrest MD Address: Address: [address]
[2023-01-11 18:34] LABS: PSA, Diagnostic 6.9 ng/mL (<=6.5)
== END 2023-01-10 14:43 | disposition home or self-care (01) ==
LOC: LBO 14:44
PROVIDERS: PCP Family Medicine; Visit Provider Nurse Practitioner Gerontology
DX: N42.81 Prostatodynia syndrome (principal); R33.9 Retention of urine, unspecified; Z80.42 Family history of malignant neoplasm of prostate
CPT/HCPCS: 36415; 81003; 99205; 84153

== ENCOUNTER → 2023-02-23 12:40 | Outpatient (BNVA) | payer MEDICARE, SELFPAY | PROVIDERS: PCP Family Medicine; Referring Provider Family Medicine; Visit Provider Nurse Practitioner Gerontology | DX: R33.8 Other retention of urine (principal); N20.0 Calculus of kidney; N41.9 Inflammatory disease of prostate, unspecified | CPT/HCPCS: 99214 ==

== ENCOUNTER → 2023-03-16 09:42 | Outpatient (BNVA) | payer MEDICARE, SELFPAY | PROVIDERS: PCP Family Medicine; Referring Provider Family Medicine; Visit Provider Nurse Practitioner Gerontology | DX: N41.9 Inflammatory disease of prostate, unspecified (principal); R33.8 Other retention of urine; A04.72 Enterocolitis due to Clostridium difficile, not specified as recurrent | CPT/HCPCS: 99442 ==